=== PATIENT | female | born 1955 | race Caucasian/White ===

== ENCOUNTER 2019-02-09 18:22 | Inpatient (IN) | payer MEDICARE, OTHER ==
[~2019-02-09] VITALS: Ht 152.4 cm; Wt 49.7 kg
[~2019-02-09 18:22] MED LIST: Benazepril HCl10 MG PO; DIAZ5 PO; PARO20 PO; QUET25 PO
[2019-02-09] MEDS ORDERED: Plavix75 MG PO (18:38)
[2019-02-09] MEDS ORDERED: VYTORIN (18:41)
[2019-02-09 19:22] LABS: BASOPHILS ABSOLUTE AUTO 0.03 K/mm3 (0.00-0.23); BASOPHILS PERCENT AUTO 1 % (0-2); EOSINOPHILS PERCENT AUTO 2 % (0-6); Hematocrit 21.7 % (33.0-51.0); IMMATURE GRAN ABSOLUTE AUTO 0.02 K/mm3 (0.00-0.10); IMMATURE GRAN PERCENT AUTO 0 % (0-1); LYMPHOCYTES ABSOLUTE AUTO 1.54 K/mm3 (0.84-5.20); LYMPHOCYTES PERCENT AUTO 24 % (21-46); MONOCYTES ABSOLUTE AUTO 0.34 K/mm3 (0.16-1.47); MONOCYTES PERCENT AUTO 5 % (4-13); Mean Corpuscular HGB 33.7 pg (26.0-34.0); Mean Corpuscular HGB Conc 32.3 g/dL (31.5-36.5); Mean Corpuscular Volume 104 fL (80-100); Mean Platelet Volume 9.5 fL (9.1-12.4); NEUTROPHILS PERCENT AUTO 68 % (41-73); Platelet Count 262 K/mm3 (150-400); RDW Coefficient Variation 13.1 % (11.7-14.2); RDW Standard Deviation 49.4 fL (35.1-46.3); Red Blood Cell Count 2.08 M/mm3 (3.80-5.20); White Blood Cell Count 6.33 K/mm3 (4.00-11.30)
[2019-02-09 19:39] LABS: Anion Gap 7 mmol/L (6-16); Blood Urea Nitrogen 59 mg/dL (8-24); Bun/Creatinine Ratio 79.1 (12.0-20.0); CO2, Blood 24 mmol/L (21-32); Calcium, Blood 8.2 mg/dL (8.5-10.1); Chloride, Blood 102 mmol/L (98-108); Creatinine, Blood 0.75 mg/dL (0.40-1.00); Glomerular Filtration Rate >60 (60-); Glucose, Blood 103 mg/dL (70-99); Magnesium, Blood 1.8 mg/dL (1.6-2.4); Potassium, Blood 3.7 mmol/L (3.5-5.5); Sodium, Blood 133 mmol/L (136-145); Troponin I <0.015 ng/mL (0.000-0.040)
[2019-02-09 20:50] LABS: International Normalized Ratio 1.08; Prothrombin Time Results 11.4 Sec (9.7-11.5)
[2019-02-09 20:55] LABS: Percent Saturation 32.9 % (15.0-50.0)
[2019-02-09] MEDS ORDERED: SIMV40 PO (22:27)
--- NOTE | 2019-02-10 00:23 | NUR ---
BLOOD UNIT NUMBER [id number] WAS STARTED IN ED, ALL PROTOCOLS FOLLOWED, STOPPED AT 0000, SEE PAPER CHART
--- NOTE | 2019-02-10 04:19 | NUR ---
SHIFT SUMMARY: PATIENT ARRIVED TO [facility] AT APPROX 2200 VIA GURNEY FROM ER. PATIENT ALERT AND ORIENTED AND ABLE TO TRANSFER FROM GURNEY TO BED WITH MINIMAL ASSIST. PATIENT DENIES ANY LIGHTHEADED/DIZZY SENSATION. PATIENT BLOOD AND PROTONIX STARTED IN ER AND CONTINUED UPON ADMISSION. ALL ADMISSION COMPLETED AND PATIENT ORIENTED TO CALL LIGHT, HOSPITAL POLICIES AND PROCEEDURES. PATIENT VSS, CALL LIGHT WITHIN REACH AND BED LOW AND LOCKED.
[2019-02-10 04:49] LABS: Hematocrit 25.5 % (33.0-51.0); Hemoglobin 8.6 g/dL (11.5-16.0)
[2019-02-10 05:06] LABS: Anion Gap 6 mmol/L (6-16); Blood Urea Nitrogen 49 mg/dL (8-24); Bun/Creatinine Ratio 74.1 (12.0-20.0); CO2, Blood 23 mmol/L (21-32); Calcium, Blood 7.9 mg/dL (8.5-10.1); Chloride, Blood 109 mmol/L (98-108); Creatinine, Blood 0.66 mg/dL (0.40-1.00); Glomerular Filtration Rate >60 (60-); Glucose, Blood 100 mg/dL (70-99); Potassium, Blood 3.8 mmol/L (3.5-5.5); Sodium, Blood 138 mmol/L (136-145)
--- NOTE | 2019-02-10 07:54 | NUR ---
pt laying in bed awake a/ox3, pleasant and coopertive with care, follows commands well, denies any pain at this time, lungs are clear t/o, resp even and unlabored, no cough noted, hrr, tele in place running sr per monitor, see strip, no edema noted, ppp+2, cap refill <3sec, vs stable, afebrile, iv site is clear and patent, btx4, abd flat soft notender, voids without diff, skin has multiple bruising from fall at home, otherwise c/w/d, myla, up with sandby assist to miguel angel wilson, call light in reach.
[2019-02-10 12:15] LABS: Hematocrit 22.5 % (33.0-51.0); Hemoglobin 7.5 g/dL (11.5-16.0)
--- NOTE | 2019-02-10 18:47 | NUR ---
pt had an uneventful day, vs stable, did have a low grade temp, but her room was warm, she is recieving one unit of prbc's, no further complaints or needs, call light in reach.
[2019-02-10 20:06] LABS: Hematocrit 26.1 % (33.0-51.0); Hemoglobin 8.8 g/dL (11.5-16.0)
--- NOTE | 2019-02-10 23:27 | NUR ---
1945 ASSUMED CARE, PATIENT STANDING IN ROOM PUTTING PERSONAL BELONGINGS AWAY. STABLE ON FEET. SEE [facility] FOR FULL ASSESSMENT. PLAN FOR THIS SHIFT DISSCUSSED, CALL LIGHT AVAILABLE, WILL CONTINUE TO MONITOR.
--- NOTE | 2019-02-11 02:59 | NUR ---
0245 INSULATION CUPOLA OPERATOR ATTEMPTED TO STAND TO GO TO BATHROOM, PATIENT APPEAR TO GET DIZZY AND INSULATION CUPOLA OPERATOR EASED PT BACK ONTO BED. PATIENT WENT UNRESPONSIVE, AND BEGAN SHAKING. THIS RN AND 2 OTHER RN ENTERED ROOM AND POSITIONED PT IN BED. VS SHOWED SYSTOLIC BP OF 88 AND HR IN 130'S. LESS THAN 1 MINUTE PATIENT WAS AWAKE AND ANSWERING QUESTIONS APPROPRIATLY. WITHIN ANOTHER MINUTE PT WAS UNRESPONSIVE AND KICKING LEGS LIKE A FROG AND ARMS JERKING UP AND DOWN, EPISODE LASTED LESS THAN 1 MINUTE. PT AWOKE AND ANSWERED A COUPLE QUESTIONS AND EPISODE STARTED AGAIN LASTING APPROX 1 1/2 MINUTES. 1 MG ATIVAN GIVEN PATIENT AWOKE AND INFORMED STAFF THAT THESE WERE HER ANXIETY ATTACKS AND THIS HAS HAPPEN BEFORE. VITAL SIGNS SYSTOLIC BP 100 - 120 MAP IN 70'S HR 130 TO 160. PATIENT HAS BEEN STABLE AT [address] MCCAULEY NOTIFIED AND UNDERSTANDS THESE ARE SUDOSEIZRES, ADVISES TO MONITOR AND PLACE SEIZURE PADS ON BED.
[2019-02-11 04:31] LABS: Hematocrit 23.4 % (33.0-51.0); Hemoglobin 7.8 g/dL (11.5-16.0)
[2019-02-11 04:54] LABS: Albumin, Blood 2.8 g/dL (3.4-5.0); Anion Gap 5 mmol/L (6-16); Blood Urea Nitrogen 42 mg/dL (8-24); Bun/Creatinine Ratio 59.1 (12.0-20.0); CO2, Blood 25 mmol/L (21-32); Chloride, Blood 109 mmol/L (98-108); Creatinine, Blood 0.71 mg/dL (0.40-1.00); Glomerular Filtration Rate >60 (60-); Glucose, Blood 119 mg/dL (70-99); Phosphorus, Blood 1.8 mg/dL (2.5-4.9); Potassium, Blood 3.9 mmol/L (3.5-5.5); Sodium, Blood 139 mmol/L (136-145)
--- NOTE | 2019-02-11 05:14 | NUR ---
PATIENT UP TO BSC TO URINATE AND PASS DAVID. WHILE SITTING PATIENT BECAME NAUSEATED AND VOMITED APROX [address] MCCAULEY NOTIFIED FOR NAUSEA MEDICATION, RED EMESIS AND DROP OF HBG TO 7.8. ONLY ORDER WAS FOR ZOFRAN 4 MG.
--- NOTE | 2019-02-11 07:25 | NUR ---
pt laying in bed awake a/ox3, pleasant and cooperative with care, follows commands well, reports she had a bad night, had an anxiety attack and a possible siezure, but reports that was anxiety. she also had a bout of bloody emisis, reports pain in epigastric area. lungs are clear t/o, resp even and unlabored, no cough noted, hrr, tele in place running sr per monitor, see strip, no edema noted, ppp+2, cap refill <3sec, vs stable, afebrile, iv sites are clear and patent, btx4, abd flat soft nontender, voids without diff, skin c/w/d, maew, very weak this am which is a change from yesterday. miguel angel. call light in reach.
[2019-02-11 07:51] LABS: Hematocrit 24.6 % (33.0-51.0); Hemoglobin 8.1 g/dL (11.5-16.0)
[2019-02-11 11:17] LABS: Hematocrit 23.1 % (33.0-51.0); Hemoglobin 7.6 g/dL (11.5-16.0)
--- NOTE | 2019-02-11 11:32 | NUR ---
pt left for enoscope via gurney.
--- NOTE | 2019-02-11 12:00 | NUR ---
02/11/19 Annaamrie Caballero History, Chart, Medications and Allergies reviewed before start of procedure.PATIENT DETERMINED TO BE ASA APPROPRIATE FOR PROPOFOL SEDATION PRIOR TO START OF PROCEDURE BY .MONITOR INTACT WITH CONTINUOUS PULSE OXIMETRY AND INTERMITTENT BP.3-LEAD EKG REVIEWED WITH PHYSICIAN PRIOR TO START OF PROCEDURE.O2 VIA N/C INTACT THROUGHOUT SEDATION/PROCEDURE.
--- NOTE | 2019-02-11 18:25 | NUR ---
pt states she is feeling a lot better, was willing to try to drink an enusre as she is on a full liquid diet now. vs stable, no complaints. has been sleeping. no needs at this time, call light in reach.
[2019-02-11 19:15] LABS: Hematocrit 20.4 % (33.0-51.0); Hemoglobin 6.8 g/dL (11.5-16.0)
--- NOTE | 2019-02-11 19:49 | NUR ---
H&H Dr. Estevez called regarding H&H drop to 6.8. Pt alert and oriented, no sign of active bleed. No tenderness with abd palpation. Dr. Estevez orders repeat H&H. Orders place per MD. Will continue to monitor.
[2019-02-11 20:19] LABS: Hematocrit 20.6 % (33.0-51.0); Hemoglobin 6.8 g/dL (11.5-16.0)
[2019-02-12 03:30] LABS: BASOPHILS ABSOLUTE AUTO 0.04 K/mm3 (0.00-0.23); BASOPHILS PERCENT AUTO 1 % (0-2); EOSINOPHILS ABSOLUTE AUTO 0.09 K/mm3 (0.00-0.68); EOSINOPHILS PERCENT AUTO 1 % (0-6); Hematocrit 22.2 % (33.0-51.0); Hemoglobin 7.5 g/dL (11.5-16.0); IMMATURE GRAN ABSOLUTE AUTO 0.06 K/mm3 (0.00-0.10); IMMATURE GRAN PERCENT AUTO 1 % (0-1); LYMPHOCYTES ABSOLUTE AUTO 1.47 K/mm3 (0.84-5.20); LYMPHOCYTES PERCENT AUTO 20 % (21-46); MONOCYTES ABSOLUTE AUTO 0.51 K/mm3 (0.16-1.47); MONOCYTES PERCENT AUTO 7 % (4-13); Mean Corpuscular HGB Conc 33.8 g/dL (31.5-36.5); Mean Platelet Volume 9.8 fL (9.1-12.4); NEUTROPHILS ABSOLUTE AUTO 5.14 K/mm3 (1.96-9.15); NEUTROPHILS PERCENT AUTO 70 % (41-73); Platelet Count 159 K/mm3 (150-400); RDW Coefficient Variation 16.7 % (11.7-14.2); RDW Standard Deviation 56.5 fL (35.1-46.3); Red Blood Cell Count 2.27 M/mm3 (3.80-5.20); White Blood Cell Count 7.31 K/mm3 (4.00-11.30)
[2019-02-12 03:31] LABS: Hematocrit 22.6 % (33.0-51.0); Hemoglobin 7.4 g/dL (11.5-16.0)
[2019-02-12 03:36] LABS: Mean Corpuscular Volume 98 fL (80-100)
[2019-02-12 03:54] LABS: Albumin, Blood 2.5 g/dL (3.4-5.0); Anion Gap 4 mmol/L (6-16); Blood Urea Nitrogen 20 mg/dL (8-24); Bun/Creatinine Ratio 30.9 (12.0-20.0); CO2, Blood 28 mmol/L (21-32); Calcium, Blood 7.9 mg/dL (8.5-10.1); Chloride, Blood 109 mmol/L (98-108); Creatinine, Blood 0.65 mg/dL (0.40-1.00); Glomerular Filtration Rate >60 (60-); Glucose, Blood 101 mg/dL (70-99); Phosphorus, Blood 2.3 mg/dL (2.5-4.9); Potassium, Blood 3.8 mmol/L (3.5-5.5); Sodium, Blood 141 mmol/L (136-145)
--- NOTE | 2019-02-12 06:27 | NUR ---
Shift Summary VSS. Pt resting comfortably this shift. Hbg drop to 6.8, MD notified and orders recieved to transfuse 1 unit PRBC. Hgb 7.5 post transfusion. MD notified, no new orders recieved. Pt remains alert and oriented, able to make needs known, uses call light appropriately, answers questions and follows directions apporpriately. Pt without complaints of pain or discomfort this shift. Palpation of abd remains unchanged, not firm, flat, non-tender. Pt able to tranfer to BSC with SBA to void. Pt NPO since 0100 per orders. Will continue to monitor until shift change.
[2019-02-12 12:04] LABS: BASOPHILS ABSOLUTE AUTO 0.05 K/mm3 (0.00-0.23); BASOPHILS PERCENT AUTO 1 % (0-2); EOSINOPHILS ABSOLUTE AUTO 0.13 K/mm3 (0.00-0.68); EOSINOPHILS PERCENT AUTO 2 % (0-6); Hematocrit 24.2 % (33.0-51.0); Hemoglobin 7.9 g/dL (11.5-16.0); IMMATURE GRAN ABSOLUTE AUTO 0.06 K/mm3 (0.00-0.10); IMMATURE GRAN PERCENT AUTO 1 % (0-1); LYMPHOCYTES ABSOLUTE AUTO 1.69 K/mm3 (0.84-5.20); LYMPHOCYTES PERCENT AUTO 23 % (21-46); MONOCYTES ABSOLUTE AUTO 0.52 K/mm3 (0.16-1.47); MONOCYTES PERCENT AUTO 7 % (4-13); Mean Corpuscular HGB 31.5 pg (26.0-34.0); Mean Corpuscular HGB Conc 32.6 g/dL (31.5-36.5); Mean Corpuscular Volume 96 fL (80-100); Mean Platelet Volume 9.4 fL (9.1-12.4); NEUTROPHILS ABSOLUTE AUTO 4.88 K/mm3 (1.96-9.15); NEUTROPHILS PERCENT AUTO 67 % (41-73); Platelet Count 166 K/mm3 (150-400); RDW Coefficient Variation 17.4 % (11.7-14.2); RDW Standard Deviation 55.8 fL (35.1-46.3); Red Blood Cell Count 2.51 M/mm3 (3.80-5.20); White Blood Cell Count 7.33 K/mm3 (4.00-11.30)
[2019-02-12] MEDS ORDERED: PANT40 PO (15:19)
--- NOTE | 2019-02-12 15:39 | NUR ---
DISCHARGE HOME PT DISCHARGED HOME WITH FAMILY. SR. WHIT ELIASOPY. SHE HAS BEEN UP IN HER ROOM WITHOUT DIZZINESS OR COMPLAINT. IV REMOVED X2. PRESSURE DRESSINGS APPLIED. CONTINUE POT.
== END 2019-02-12 15:45 | disposition home or self-care (01) | DRG 378 ==
LOC: ER 18:22 → PCU 20:39
PROVIDERS: Emergency Medicine; Internal Medicine; Internal Medicine Gastroenterology; Nurse Practitioner Acute Care; ADMIT Hospitalist
PROC: 30233N1 Transfusion of Nonautologous Red Blood Cells into Peripheral Vein, Percutaneous Approach (ICD-10-PCS; 2019-02-09)
PROC: 0W3P8ZZ Control Bleeding in Gastrointestinal Tract, Via Natural or Artificial Opening Endoscopic (ICD-10-PCS; principal; 2019-02-11 09:45)
DX: K25.4 Chronic or unspecified gastric ulcer with hemorrhage (principal); D62 Acute posthemorrhagic anemia; I95.9 Hypotension, unspecified; K29.61 Other gastritis with bleeding; E86.0 Dehydration; I10 Essential (primary) hypertension; E78.5 Hyperlipidemia, unspecified; G25.0 Essential tremor; F32.9 Major depressive disorder, single episode, unspecified; F41.1 Generalized anxiety disorder; E83.39 Other disorders of phosphorus metabolism; I67.9 Cerebrovascular disease, unspecified; D50.9 Iron deficiency anemia, unspecified; Z86.73 Personal history of transient ischemic attack (TIA), and cerebral infarction without residual deficits; Z87.11 Personal history of peptic ulcer disease; Z79.02 Long term (current) use of antithrombotics/antiplatelets; Z79.82 Long term (current) use of aspirin; Z79.899 Other long term (current) drug therapy
CPT/HCPCS: 36415; 36430; 80048; 80069; 82272; 82607; 82728; 82746; 83540; 83550; 83735; 84484; 85014; 85018; 85025; 85610; 86850; 86900; 86901; 86923; 93005; 93010; 96365; 96376; 99285-25; A9270-GY; C9113; J0171; J2060; J2704; J7030; J7060; J7120; P9016

== ENCOUNTER 2022-01-26 18:27 | Emergency (ER) | payer MEDICARE, OTHER ==
[~2022-01-26] VITALS: Ht 165.1 cm; Wt 54.4 kg
[~2022-01-26 18:27] MED LIST changes: +AMOCLA875 PO; +BENAZEPRIL HCL20 M4 PO; +DIAZEPAM10 MG PO; +DIAZEPAM2 M2 PO; +K-TAB ER20 ME1 PO; +LATA.005SO BOTHEYES; +LEVE500 PO; +MAG-OXIDE MAGN200 MG PO; +MICROZIDE12.5 M2 PO; +PANT40 PO; +Plavix75 MG PO; +SEROQUEL XR50 MG PO; +SIMV40 PO; +Simvastatin40 MG PO; +VISBIOME 112.51 EACH PO; +VYTORIN
[2022-01-26] MEDS ORDERED: LISI5 PO (19:24)
[2022-01-26 19:28] LABS: BASOPHILS ABSOLUTE AUTO 0.05 K/mm3 (0.00-0.23); BASOPHILS PERCENT AUTO 1 % (0-2); EOSINOPHILS ABSOLUTE AUTO 0.24 K/mm3 (0.00-0.68); EOSINOPHILS PERCENT AUTO 3 % (0-6); Hematocrit 37.6 % (33.0-51.0); Hemoglobin 12.5 g/dL (11.5-16.0); IMMATURE GRAN ABSOLUTE AUTO 0.06 K/mm3 (0.00-0.10); IMMATURE GRAN PERCENT AUTO 1 % (0-1); LYMPHOCYTES ABSOLUTE AUTO 2.13 K/mm3 (0.84-5.20); LYMPHOCYTES PERCENT AUTO 29 % (21-46); MONOCYTES ABSOLUTE AUTO 0.58 K/mm3 (0.16-1.47); MONOCYTES PERCENT AUTO 8 % (4-13); Mean Corpuscular HGB Conc 33.2 g/dL (31.5-36.5); Mean Corpuscular Volume 99 fL (80-100); Mean Platelet Volume 9.2 fL (9.1-12.4); NEUTROPHILS ABSOLUTE AUTO 4.32 K/mm3 (1.96-9.15); NEUTROPHILS PERCENT AUTO 58 % (41-73); Platelet Count 247 K/mm3 (150-400); RDW Coefficient Variation 12.2 % (11.7-14.2); RDW Standard Deviation 44.7 fL (35.1-46.3); Red Blood Cell Count 3.79 M/mm3 (3.80-5.20); White Blood Cell Count 7.38 K/mm3 (4.00-11.30)
[2022-01-26 19:51] LABS: Albumin, Blood 4.3 g/dL (3.4-5.0); Albumin/Globulin Ratio 1.3 (0.8-1.8); Bilirubin, Total 0.3 mg/dL (0.1-1.0); Bun/Creatinine Ratio 26.3 (12.0-20.0); Calcium, Blood 9.4 mg/dL (8.5-10.1); Creatinine, Blood 0.72 mg/dL (0.40-1.00); Globulin, Blood 3.4 g/dL (2.2-4.0); Magnesium, Blood 1.8 mg/dL (1.6-2.4); Potassium, Blood 3.7 mmol/L (3.5-5.5); Total Protein, Blood 7.7 g/dL (6.4-8.2)
[2022-01-26] MEDS ORDERED: LEVE500 PO (21:58)
== END 2022-01-26 22:33 | disposition home or self-care (01) ==
LOC: ER 18:27
PROVIDERS: Emergency Medicine
DX: R56.9 Unspecified convulsions (principal); F41.9 Anxiety disorder, unspecified; F32.A Depression, unspecified; Z79.899 Other long term (current) drug therapy
CPT/HCPCS: 70450; 80053; 83735; 85025; J1953; J2060